=== PATIENT | male | born 1970 | race Caucasian/White ===

== ENCOUNTER 2022-09-25 09:13 | Outpatient (CLI) | payer BC, SELFPAY ==
--- NOTE | 2022-09-25 10:00 | CRLHL7_ITS ---
For Patients: As a result of the Century Cures Act, medical imaging exams and procedure reports are released immediately into your electronic medical record. You may view this report before your referring provider. If you have questions, please contact your health care provider. Indication: Sigmoid colon cancer surveillance Technique : Postcontrast CT chest, abdomen and pelvis. 118 cc Isovue 370 intravenous contrast. Please note that all CT scans at this facility use dose modulation, iterative reconstruction, and/or weight-based dosing when appropriate to reduce radiation dose to as low as reasonably achievable. Comparison: 04/04/2022 CT, 04/08/2022 MRI Findings: In the chest, the visualized thyroid is normal. No mediastinal, hilar or axillary adenopathy. Coronary artery calcifications are noted. No pleural or pericardial effusion. Lungs are clear without infiltrate, edema or pneumothorax. Stable subpleural nodule right lung laterally measuring 4.6 millimeters, . No fracture or intrinsic osseous lesion. In the abdomen, 4 millimeter cyst within the dome of the liver is unchanged. Additional benign 6 millimeter cyst within the inferior liver is also unchanged. No suspicious intrahepatic mass. The gallbladder is normal. No biliary obstruction or calcified gallstone. The spleen is normal. Normal adrenal glands. The right kidney is unremarkable. Normal right ureter. Severe atrophy of the [place] left kidney again noted. Left para aortic lymph nodes are similar measuring up to 1 cm. No hiatal hernia. In the pelvis, oblong cystic areas adjacent to the left UVJ again noted. No bladder stones. Postop changes of partial colectomy with primary anastomosis. No bowel obstruction. No inflammatory changes. The appendix is within normal limits. The previously noted small lymph nodes cephalad to the sigmoid colon are not visualized on today`s exam. Benign bone island is present within the L5 vertebral body, as before. Mild discogenic spurring throughout the lumbar spine. No fracture. Impression: Postoperative changes sigmoidectomy with primary anastomosis and interval resolution of small lymph nodes within the adjacent mesenteric fat. Multiple lymph nodes in the retroperitoneum measuring 1 cm or less are similar. Stable less than 5 millimeter intrahepatic cysts. Stable pleural-based density right lung measuring 4.6 millimeters considered benign. Please note that all CT scans at this facility use dose modulation, iterative reconstruction, and/or weight-based dosing when appropriate to reduce radiation dose to as low as reasonably achievable. Dictated by José Miguel Cantu MD @ 09/25/2022 11:49:58 AM (Electronically Signed)
== END 2022-09-25 09:14 | disposition home or self-care (01) ==
PROVIDERS: PCP Family Medicine; Visit Provider Internal Medicine
DX: C18.7 Malignant neoplasm of sigmoid colon (principal); K76.89 Other specified diseases of liver; R91.8 Other nonspecific abnormal finding of lung field
CPT/HCPCS: 71260; 74177; Q9967